=== PATIENT | female | born 2005 | race Caucasian/White ===

== ENCOUNTER 2024-02-29 10:09 | Emergency (ER) | payer OTHER, SELFPAY ==
[2024-02-29 10:21] VITALS: BP 119/75; PULSE 90; RESP 16; TEMP 36.1; O2SAT 100
--- NOTE | 2024-02-29 10:34 | ED.URI ---
HPI - URI/Sore Throat General Chief Complaint: Upper Respiratory Infection Stated Complaint: Sore Throat Time Seen by Provider: 02/29/24 10:20 Source: patient and RN notes reviewed Mode of arrival: ambulatory Limitations: no limitations History of Present Illness HPI Narrative: Patient presents today complaining of sore throat since last night, worse this morning. She works at a daycare with multiple sick contacts. Currently rates her pain 6/10 and has tried no [id number] treatment prior to arrival. No additional symptoms. Related Data Allergies Allergy/AdvReac Type Severity Reaction Status Date / Time No Known Allergies Allergy Unverified 01/16/24 14:11 Review of Systems Review of Systems: CONSTITUTIONAL: Denies body aches, fever, chills, or sweats. EYES: Denies visual changes, redness, or discharge. ENT: Denies rhinorrhea, congestion, or otalgia.+ sore throat CARDIOVASCULAR: Denies chest pain, palpitations, or edema. RESPIRATORY: Denies cough or dyspnea. GASTROINTESTINAL: Denies abdominal pain, nausea, vomiting, or diarrhea. GENITOURINARY: Denies dysuria or hematuria. SKIN: Denies rash, itching, or wounds. MUSCULOSKELETAL: Denies back pain, joint pain, or myalgia. NEUROLOGIC: Denies headache, numbness, tingling, or weakness. PSYCH: Denies depression or anxiety. FORMERLY [facility] Past Medical History Medical History Generalized anxiety disorder with panic attacks Seasonal allergies Skin abnormality Surgical History Surgical History H/O wisdom tooth extraction History of tonsillectomy Family History Family History Grandparent Malignant neoplasm of prostate Father Depression Mother Depression Grandparent Lung cancer Diabetes mellitus Heart disease Cerebrovascular accident Social History Social History Smoking status: Never smoker Alcohol intake: never Substance use: never Substance use type: does not use Lack of Transportation: No Lack of Food: Never True Current Housing: I Have Housing Concerned About Future Housing: No Difficulty Paying Gas/Electric Bills: No Difficulty Paying for Meds: No Currently Unemployed: No Education: High School Diploma/GED Difficulty w/ Childcare or Family Care: No Living arrangements: with family Occupation/Education: occupation Additional occupation/education comments: Gender identity (if verbalized by the patient): Female Sexual Orientation (if Verbalized by the Patient): Straight or Heterosexual Comments At time of signature, I have reviewed and agree with nursing past medical, surgical, social and family history unless otherwise noted. Please see nursing chart for further information. There is no relevant family history pertinent to the presenting complaint Exam Narrative: GENERAL: Well-appearing, well-nourished, and in no acute distress. HEAD: Normocephalic, atraumatic. EYES: EOMI. No redness or drainage. Conjunctivae normal. ENT: Mucous membranes pink and moist. Nares clear. No rhinorrhea. TMs normal bilaterally. Throat mildly erythematous without edema or exudate. Uvula midline. NECK: Normal AROM. Supple. No lymphadenopathy. CHEST: No respiratory distress. Clear to auscultation. HEART: Regular rate and rhythm. No murmur appreciated. EXTREMITIES: Normal range of motion. No edema. SKIN: Warm, dry, no rash. Capillary refill normal. Normal skin turgor. NEURO: No focal deficits. Alert and oriented x3. Gait steady. PSYCH: Normal affect. No signs of depression or anxiety. Course Course Level of Care: Express Care Visit Vital Signs Vital signs: Vital Signs Temperature 97.0 F L 02/29/24 10:21 Pulse Rate 90 02/29/24 10:21 Respiratory Rate 16
== END 2024-02-29 10:46 | disposition home or self-care (01) ==
PROVIDERS: Emergency Provider Nurse Practitioner; PCP Nurse Practitioner Family
DX: J02.9 Acute pharyngitis, unspecified (principal)
CPT/HCPCS: 87081; 87880; 99213; G0463

== ENCOUNTER 2024-11-12 12:46 | Emergency (ER) | payer OTHER, SELFPAY ==
--- NOTE | 2024-11-12 12:51 | ED_ITS ---
HPI - URI/Sore Throat General Chief Complaint: Upper Respiratory Infection Stated Complaint: Sore Throat/Headache Time Seen by Provider: 11/12/24 12:55 Source: patient Mode of arrival: ambulatory Limitations: no limitations History of Present Illness HPI Narrative: Olivia is a 19-year-old female patient presenting to the clinic today with complaints of sore throat and headache. She reports symptoms been going for 2 days. She denies any known fever, chills, or body aches. She said her grandfather was influenza A positive when he went to the emergency room last night. MD elicited complaint: sore throat and other (Headache) Related Data Allergies Allergy/AdvReac Type Severity Reaction Status Date / Time No Known Allergies Allergy Verified 11/12/24 13:01 Review of Systems Review of Systems: Pertinent positives per HPI. Patient denies any fever, chills, rash, visual changes, dizziness, cough, shortness of breath, chest pain, palpitations, nausea, vomiting, diarrhea, constipation, abdominal pain, or any urinary issues. PENDING SALE TO [facility] Past Medical History Medical History Generalized anxiety disorder with panic attacks Seasonal allergies Skin abnormality Surgical History Surgical History H/O wisdom tooth extraction History of tonsillectomy Family History Family History Grandparent Malignant neoplasm of prostate Father Depression Mother Depression Grandparent Lung cancer Diabetes mellitus Heart disease Cerebrovascular accident Social History Social History Smoking status: Never smoker Alcohol intake: never Substance use: never Substance use type: does not use Lack of Transportation: No Lack of Food: Never True Current Housing: I Have Housing Concerned About Future Housing: No Difficulty Paying Gas/Electric Bills: No Difficulty Paying for Meds: No Currently Unemployed: No Education: High School Diploma/GED Difficulty w/ Childcare or Family Care: No Living arrangements: with family Occupation/Education: occupation Additional occupation/education comments: Gender identity (if verbalized by the patient): Female Sexual Orientation (if Verbalized by the Patient): Straight or Heterosexual Comments At the time of my signature, I reviewed and agree with the nursing past medical, surgical, social, and family history. There is no relevant family history pertinent to the patient complaint. Exam Narrative: General: Well-developed, well nourished, in no apparent distress Head: Normocephalic, atraumatic Eyes: Pupils equally round and reactive to light bilaterally, EOM intact, sclera and conjunctive clear, no discharge, lids normal Ears: TMs intact and clear, ear canals clear, no drainage, grossly hearing jose de jesus l. Nose: Nares patent, clear nasal discharge, no inflammation, no sinus tenderness. Mouth: Oral pharynx without lesions or masses, good dentition, MMM. Postnasal drip, tonsils surgically absent Neck: Supple, trachea midline, no enlargement of anterior or posterior cervical nodes, no thyroid masses or goiter palpable. Cardio: Regular rate and rhythm, s1 and s2 normal, no murmur appreciated. Resp: Clear to auscultation bilaterally, no rhonchi, rales, wheezing or rubs Course Course Emergency Course: Portions of this record may have been created with voice recognition software. Level of Care: Express Care Visit Vital Signs Vital signs: Vital Signs Temperature 36.5 C 11/12/24 12:54 Pulse Rate 79 11/12/24 12:54 Respiratory Rate 16 11/12/24 12:54 Blood Pressure 131/77 11/12/24 12:54 Pulse Oximetry 100 11/12/24 12:54 Temperature 36.5 C 11/12/24 12:54 Pulse Rate 79 11/12/24 12:54 Respiratory Rate 16 11/12/24 12:54 Blood Pressure 131/77 11/12/24 12:54 Pulse Oximetry 100 11/12/24 12:54 Vital signs reviewed MDM - URI/Sore Throat MDM Narrative Medical decision making narrative: At the time of visit patient is resting comfortably on the exam table. Patient appears to be nontoxic. Labs: Influenza and strep test was performed. Influenza and Strep test was negative so we will send strep for culture. Plan: I suspect patient has pharyngitis. Supportive measures were discussed with the patient and they voiced understanding discharge instructions and agrees to treatment plan. Return precautions reviewed Differential Diagnosis Differential diagnosis: Likely upper respiratory infection, otitis media, sinusitis, viral infection, bronchitis, influenza, pharyngitis and other (COVID) Lab Data Labs: Lab Results 11/12/24 11/12/24 Range/Units 13:02 13:03 POC Influenza A Ag Negative (Negative) POC Influenza B Ag Negative (Negative) POC Grp A Strep Screen Negative (Negative) Discharge Plan Discharge Clinical Impression: Pharyngitis Qualifiers: Pharyngitis/tonsillitis etiology: unspecified etiology Qualified Code(s): J02.9 - Acute pharyngitis, unspecified Patient Disposition: Home, Self-Care Condition: Stable Instructions: Antibiotic Form, Pharyngitis (ED) Additional Instructions: Influenza and strep test were negative in the clinic today. We will send strep for culture Increase fluids and stay well hydrated Tylenol/motrin for pain/fever Flonase and OTC antihistamines as directed Vicks vapor rub to open sinuses Sinus rinses for congestion Cepacol spray, cough drops, throat lozenges, warm tea with honey/lemon, gargle salt water to soothe throat BRAT diet for diarrhea Clear liquids x 24 hours then advance as tolerated for nausea/vomiting Go to the ED if you develop a worsening in your condition- high fever not controlled by Tylenol or Motrin, dehydration, weakness, lethargy, shortness of breath, or chest pain. Follow up with your PCP in 3-5 days if symptoms persist. Patient Language: New Zealander Prescriptions: No Action escitalopram oxalate [Lexapro] 5 mg tablet 5 mg PO DAILY Qty: 90 3RF Follow-up/Referrals: Lisa Hernandez NP [Primary Care Provider] - Stand Alone Forms: Work/School Release IP Time of Disposition: 13:02 Quality NIHSS Nursing Documentation ED NIHSS nursing documentation: reviewed/agree
[2024-11-12 12:54] VITALS: BP 131/77; PULSE 79; RESP 16; TEMP 36.5; O2SAT 100
[2024-11-12 13:04] LABS: EDSTREPNEGPOS1 Negative (Negative)
[2024-11-12 13:05] LABS: EDINFLUASCREEN Negative (Negative); EDINFLUBSCREEN Negative (Negative)
== END 2024-11-12 13:05 | disposition home or self-care (01) ==
PROVIDERS: Emergency Provider Nurse Practitioner Family; PCP Nurse Practitioner Family
DX: J02.9 Acute pharyngitis, unspecified (principal)
CPT/HCPCS: 87081; 87804; 87880; 99213; G0463

== ENCOUNTER 2024-12-15 10:28 | Emergency (ER) | payer OTHER, SELFPAY ==
[2024-12-15 10:45] VITALS: BP 127/75; PULSE 111; RESP 16; TEMP 36.4; O2SAT 100
--- NOTE | 2024-12-15 10:49 | ED.URI ---
HPI - URI/Sore Throat General Chief Complaint: Upper Respiratory Infection Stated Complaint: Fever, chills, body aches History of Present Illness HPI Narrative: 19-year-old female presents today with complaints of fever, sore throat, cough that started . Patient denies any diarrhea or vomiting but does endorse some nausea. She is having headache and ear congestion. Sick contacts include boyfriend who had similar symptoms but is now better Also patient works in a daycare Temperature is high as 101 but broke yesterday per patient. MD elicited complaint: fever, cough, sore throat, nasal congestion and sinus pain Related Data Allergies Allergy/AdvReac Type Severity Reaction Status Date / Time No Known Allergies Allergy Verified 12/15/24 10:37 Review of Systems Review of Systems: All systems reviewed & are unremarkable except as noted in HPI and below Eyes: Eyes: Reports as per HPI ENT: Reports as per HPI Cardiovascular: Cardiovascular: Reports as per HPI Respiratory: Respiratory: Reports as per HPI Genitourinary: Genitourinary: Reports as per HPI Musculoskeletal: Musculoskeletal: Reports as per HPI Integumentary/Breasts: Skin/Breast: Reports as per HPI Neurologic: Reports as per HPI Psychiatric: Psychiatric: Reports as per HPI Endocrine: Endocrine: Reports as per HPI Hematologic/Lymphatic: Hematologic/Lymphatic: Reports as per HPI Allergic/Immunologic: Allergic/Immunologic: Reports as per HPI [facility] Past Medical History Medical History Generalized anxiety disorder with panic attacks Seasonal allergies Skin abnormality Surgical History Surgical History H/O wisdom tooth extraction History of tonsillectomy Family History Family History Grandparent Malignant neoplasm of prostate Father Depression Mother Depression Grandparent Lung cancer Diabetes mellitus Heart disease Cerebrovascular accident Social History Social History Smoking status: Never smoker Alcohol intake: never Substance use: never Substance use type: does not use Lack of Transportation: No Lack of Food: Never True Current Housing: I Have Housing Concerned About Future Housing: No Difficulty Paying Gas/Electric Bills: No Difficulty Paying for Meds: No Currently Unemployed: No Education: High School Diploma/GED Difficulty w/ Childcare or Family Care: No Living arrangements: with family Occupation/Education: occupation Additional occupation/education comments: Gender identity (if verbalized by the patient): Female Sexual Orientation (if Verbalized by the Patient): Straight or Heterosexual Exam Const: General: cooperative, healthy appearing, comfortable, no acute distress and well developed Orientation/consciousness: patient oriented x3 HENMT: Head: normal to inspection Ears: external ears normal and TM's normal bilaterally Throat: posterior oropharynx abnormal erythema; no exudates Eyes: General: appearance normal, both eyes and all related structures Resp: Effort & Inspection: normal respiratory effort and able to speak in complete sentences Auscultation: clear to auscultation bilaterally Cardio: Rate: regular rate Rhythm: regular rhythm Heart sounds: S1 normal heart sound present and S2 normal heart sound present Skin: General skin exam: normal color Neuro: General: patient oriented x3 Cognition (Neuro): normal cognition Speech: normal speech Psych: Mental Status: mental status grossly normal Course Course Level of Care: Express Care Visit Vital Signs Vital signs: Vital Signs Temperature 97.6 F 12/15/24 10:45 Pulse Rate 111 H 12/15/24 10:45 Respiratory Rate 16 12/15/24 10:45 Blood Pressure 127/75 12/15/24 10:45 Pulse Oximetry 100 12/15/24 10:45 Temperature 97.6 F 12/15/24 10:45 Pulse Rate 111 H 12/15/24 10:45 Respiratory Rate 16 12/15/24 10:45 Blood Pressure 127/75 12/15/24 10:45 Pulse Oximetry 100 12/15/24 10:45 MDM - URI/Sore Throat MDM Narrative Medical decision making narrative: 19-year-old female HPI as noted. Differentials include upper respiratory infection, sinusitis, viral infection, influenza, COVID, strep. Session to include influenza a, COVID, strep. And fluids and gallbladder negative patient is positive for strep pharyngitis. Will treat accordingly. Did instruct patient is possible that she does have a virus on top of pharyngitis considering her symptoms and she needs to treat symptoms as they arise. Patient states last menstrual period 1 week ago and no chance of . Amoxicillin 1 tab twice a day for 10 days. Discussed follow-up care and we need to return. Differential Diagnosis Differential diagnosis: Likely upper respiratory infection, otitis media, sinusitis, viral infection, influenza and pharyngitis Medical Records Attestation: I reviewed the patient's medical records. Lab Data Attestation: I reviewed the patient's lab results. Labs: Lab Results 12/15/24 Range/Units 10:53 POC Influenza A Ag Negative (Negative) POC Influenza B Ag Negative (Negative) POC SARS CoV-2 Ag Negative (Negative) POC Grp A Strep Screen Positive (Negative) Discharge Plan Discharge Clinical Impression: Strep pharyngitis Patient Disposition: Home, Self-Care Condition: Stable Instructions: Antibiotic Form, Strep Throat (ED) Additional Instructions: Your test today was negative for influenza and COVID but your strep was positive. We are treating with amoxicillin 1 tab twice a day for 10 days. It is possible that you also have a viral infection on top of the strep throat. Please treat symptoms as needed along with antibiotics that are prescribed. Follow-up if no improvement or return if worsening in symptoms. Antibiotics can take 48-72 hours kick in. After 24 hours on antibiotics replace your toothbrush and get a new 1 to prevent reinfection. You may return to work when fever free for 24 hours and on antibiotics for 24 hours. Patient Language: Tuvaluan Prescriptions: New amoxicillin 500 mg capsule 500 mg PO Q12H 10 Days Qty: 20 0RF Follow-up/Referrals: Lisa Hernandez NP [Primary Care Provider] - Stand Alone Forms: Work/School Release IP Time of Disposition: 11:00
[2024-12-15 10:55] LABS: EDCOVIDSCREEN Negative (Negative); EDINFLUASCREEN Negative (Negative); EDINFLUBSCREEN Negative (Negative); EDSTREPNEGPOS1 Positive (Negative)
== END 2024-12-15 11:05 | disposition home or self-care (01) ==
PROVIDERS: Emergency Provider Nurse Practitioner Family; PCP Nurse Practitioner Family
DX: J02.0 Streptococcal pharyngitis (principal); Z20.822 Contact with and (suspected) exposure to COVID-19
CPT/HCPCS: 87426; 87804; 87880; 99213; G0463